=== PATIENT | female | born 1990 | race African-American/Black ===

== ENCOUNTER 2020-09-02 02:54 | Emergency (ER) | payer OTHER ==
[2020-09-02] MEDS ORDERED: Ketorolac Tromethamine 30 MG/ML VIAL ONE (03:13)
== END 2020-09-02 03:32 | disposition home or self-care (01) ==
LOC: CSHERS 02:54
DX: K02.9 Dental caries, unspecified (principal)
CPT/HCPCS: 99281; J1885

== ENCOUNTER 2021-09-26 15:27 | Emergency (ER) | payer OTHER | END 2021-09-26 17:12 | disposition home or self-care (01) | LOC: CSHERS 15:27 | DX: U07.1 COVID-19 (principal); J01.90 Acute sinusitis, unspecified; J02.9 Acute pharyngitis, unspecified | CPT/HCPCS: 87804; 99283; U0003; U0005 ==

== ENCOUNTER 2021-10-29 11:45 | Emergency (ER) | payer OTHER ==
[2021-10-29 13:57] LABS: Bilirubin Neg (Negative); Blood, Urine 50 (Negative); Clarity Clear (Clear); Glucose, Urine (Dipstick) Normal (Negative); Ketone, Urine Negative (Negative); Leukocyte Negative (Negative); Nitrite Negative (Negative); Protein, Urine (Dipstick) Negative (Neg-Trace); Urobilinogen Normal mg/dL (Less than 2)
[2021-10-29 13:59] LABS: Pregnancy Test - Urine (BHCG) Negative (Negative)
[2021-10-29 14:00] LABS: Pregu Control Background? CLEAR/WHITE (CLR/WHITE); Pregu Control Bar Appear? YES (CONTROL BAR)
[2021-10-29 14:28] LABS: Renal Epithelial 0-3 HPF (None Seen); WBC/HPF 0-3 HPF (0-3)
[2021-10-29 14:29] LABS: Bacteria/HPF 1+ HPF (None Seen)
== END 2021-10-29 14:40 | disposition home or self-care (01) ==
LOC: CSHERS 11:45
DX: B34.9 Viral infection, unspecified (principal); Z86.16 Personal history of COVID-19
CPT/HCPCS: 81003; 81015; 81025; 87086; 87804; 99284

== ENCOUNTER 2022-01-16 12:09 | Emergency (ER) | payer OTHER ==
[2022-01-16] MEDS ORDERED: Ondansetron ODT 4 MG TAB ONE (13:05)
[2022-01-16 13:31] LABS: Bilirubin Neg (Negative); Blood, Urine 25 (Negative); Glucose, Urine (Dipstick) Normal (Negative); Ketone, Urine Negative (Negative); Leukocyte Negative (Negative); Nitrite Negative (Negative); Protein, Urine (Dipstick) Negative (Neg-Trace); Specific Gravity, Urine 1.015 (1.005-1.030); Urobilinogen Normal mg/dL (Less than 2)
[2022-01-16 13:35] LABS: Clarity Slightly Cloudy (Clear)
[2022-01-16 13:40] LABS: Bacteria/HPF Rare-Few HPF (None Seen); RBC/HPF 0-3 HPF (0-3); Squamous Epithelial 0-3 HPF (0-3); WBC/HPF 0-3 HPF (0-3)
== END 2022-01-16 14:50 | disposition home or self-care (01) ==
LOC: CSHERS 12:09
DX: O20.0 Threatened abortion (principal); O20.8 Other hemorrhage in early pregnancy; Z3A.01 Less than 8 weeks gestation of pregnancy
CPT/HCPCS: 36415; 81003; 81015; 84702; 86900; 86901; Q0162

== ENCOUNTER 2022-03-11 13:17 | Emergency (ER) | payer OTHER | END 2022-03-11 14:37 | disposition home or self-care (01) | LOC: CSHERS 13:17 | DX: O98.512 Other viral diseases complicating pregnancy, second trimester (principal); B34.9 Viral infection, unspecified; Z3A.14 14 weeks gestation of pregnancy | CPT/HCPCS: 99283 ==

== ENCOUNTER 2022-05-23 17:33 | Day surgery (SDC) | payer OTHER ==
[2022-05-23 17:58] VITALS: BMI 34.7
[2022-05-23] MEDS ORDERED: hydrALAZINE 20 MG/ML VIAL SLOW IVP PRN (19:29)
== END 2022-05-23 19:10 | disposition home or self-care (01) ==
LOC: CSHLD/OP 17:33
PROVIDERS: ATTEND Obstetrics & Gynecology
DX: O26.892 Other specified pregnancy related conditions, second trimester (principal); M79.18 Myalgia, other site; R10.9 Unspecified abdominal pain; Z3A.25 25 weeks gestation of pregnancy
CPT/HCPCS: 99282

== ENCOUNTER 2024-02-24 22:20 | Emergency (ER) | payer OTHER, SELFPAY | END 2024-02-24 23:59 | disposition home or self-care (01) | LOC: CSHERS 22:20 | DX: S03.2XXA Dislocation of tooth, initial encounter (principal); K04.7 Periapical abscess without sinus; K02.9 Dental caries, unspecified; X58.XXXA Exposure to other specified factors, initial encounter | CPT/HCPCS: 99282 ==